=== PATIENT | male | born 1990 | race Caucasian/White ===

== ENCOUNTER → 2022-06-07 11:08 | Outpatient (CLI) | payer OTHER, SELFPAY ==
--- NOTE | ~2022-06-07 | XR_ITS ---
EXAMINATION: XR knee LT 3V DATE: 06/07/2022 11:23 INDICATION: Left knee pain TECHNIQUE: Three views of the left knee were obtained. COMPARISON: None. FINDINGS: Alignment is normal. No fracture or osteochondral lesion. There is mild tricompartmental os teoarthritis characterized by tiny marginal osteophytes. There is a moderate size knee joint effusion . Soft tissues are unremarkable. IMPRESSION: 1. Moderate size knee joint effusion with mild osteoarthritis. Reviewed, dictated and finalized at location A.
--- NOTE | ~2022-06-07 | XR_ITS ---
EXAMINATION: XR knee RT 3V DATE: 06/07/2022 11:23 INDICATION: Right knee pain TECHNIQUE: Two views of the right knee were obtained. COMPARISON: None. FINDINGS: Alignment is normal. No fracture or osteochondral lesion. There is mild tricompartmental os teoarthritis characterized by tiny marginal osteophytes. There is a large knee joint effusion. Soft t issues are unremarkable. IMPRESSION: 1. Large knee joint effusion. 2. Mild osteoarthritis. Reviewed, dictated and finalized at location A.
== END ==
PROVIDERS: PCP Physician Assistant; Visit Provider Physician Assistant
DX: M17.0 Bilateral primary osteoarthritis of knee (principal); M25.461 Effusion, right knee
CPT/HCPCS: 73562

== ENCOUNTER 2022-08-23 16:17 | Outpatient (NON) | payer OTHER, SELFPAY ==
[2022-08-23 17:50] LABS: Appearance Synovial Fluid Hazy (Clear); Color Synovial Fluid Yellow (Colorless); Nucleated Cell Synovial Fluid 7852 /uL (0-200); Source Synovial Fluid Synovial fluid
[2022-08-23 17:51] LABS: Lymphocytes Synovial Fluid 20 %; Macrophages Synovial Fluid 5 %; Monocytes Synovial Fluid 23 %; Neutrophils Synovial Fluid 52 % (0-25); RBC Synovial Fluid 1190 /uL (0-0)
[2022-08-23 20:22] LABS: Appearance Synovial Fluid Cloudy (Clear); Color Synovial Fluid Red (Colorless); Source Synovial Fluid Synovial fluid
[2022-08-23 20:23] LABS: Lymphocytes Synovial Fluid 22 %; Neutrophils Synovial Fluid 69 % (0-25)
[2022-08-23 20:24] LABS: Monocytes Synovial Fluid 9 %
[2022-08-23 20:27] LABS: Crystals Synovial Fluid None Seen (None Seen)
== END 2022-08-23 16:18 | disposition home or self-care (01) ==
LOC: ANHLAB 16:17
PROVIDERS: PCP Emergency Medicine; Visit Provider Physician Assistant Surgical
DX: M25.461 Effusion, right knee (principal); M25.462 Effusion, left knee
CPT/HCPCS: 87070; 87075; 87205; 89051; 89060

== ENCOUNTER 2023-05-23 11:42 | Emergency (ER) | payer OTHER, SELFPAY ==
[2023-05-23 11:48] VITALS: BP 115/58; PULSE 84; RESP 16; TEMP 36.6; O2SAT 100
--- NOTE | 2023-05-23 11:54 | ED.SKABFB ---
HPI - Skin/Abscess/Foreign Bdy General Chief complaint: Skin/Abscess/Foreign Body Stated complaint: Hives Time Seen by Provider: 05/23/23 11:54 Source: patient, RN notes reviewed and old records reviewed Mode of arrival: ambulatory Limitations: no limitations History of Present Illness HPI narrative: 32 year old male presents with increasing rash especially to his bilateral arms with itching. Patient reports that he saw his physician on Monday for rash to his scalp, groin and was placed on some shampoo, and some lotions for his rash but now has spread to his bilateral arms and some on his lower stomach. Rash is red irregular shaped with no vesicles or weeping, lower forearms are red from scratching.Patient states that rash is very itchy. Patient reports that he has taken some Benadryl but it wipes him out. MD complaint: rash Onset (ago): day(s) (5-6 days) Severity: moderate Treatments prior to arrival: OTC topical medication and other (ketoconazole shampoo) Related Data Home Medications Medication Instructions Recorded Confirmed sertraline 100 mg tablet 100 mg PO DAILY 06/07/22 05/19/23 Allergies Allergy/AdvReac Type Severity Reaction Status Date / Time No Known Allergies Allergy Verified 05/19/23 14:23 Review of Systems Review of Systems: CONSTITUTIONAL: Denies fever, chills, or sweats. CARDIOVASCULAR: Denies chest pain, palpitations, or edema. RESPIRATORY: Denies cough or dyspnea. SKIN: Reports rash to scalp, groin, bilateral arms, abdomen for 5-6 days with itching MUSCULOSKELETAL: Denies joint pain or myalgia. NEUROLOGIC: Denies headache, numbness, or weakness. All systems reviewed & are unremarkable except as noted in HPI and below PMFSH Past Medical History Medical History Anxiety Back problem Depression Diarrhea Family History Family History Father Diabetes mellitus Hypertension Grandparent Acute myocardial infarction, Onset Age: 50 Family history of malignant neoplasm Mother Patient's mother is in good health Social History Social History Smoking status: Never smoker Alcohol intake: current Lack of Transportation: No Lack of Food: Never True Current Housing: I Have Housing Concerned About Future Housing: No Difficulty Paying Gas/Electric Bills: No Difficulty Paying for Meds: No Currently Unemployed: No Education: Master's Degree or Higher Difficulty w/ Childcare or Family Care: No Comments At time of signature, agree with nursing past medical, surgical, social and family history. There is no relevant family history pertinent to the presenting complaint Exam Narrative: GENERAL: Well-appearing, well-nourished, and in no acute distress. HEAD: Normocephalic, atraumatic. EYES: PERRLA, conjunctivae clear, and EOMI. ENT: Mucous membranes moist. Oropharynx with edema, erythema no lesions. NECK: Supple. No lymphadenopathy CHEST: Clear to auscultation. No respiratory distress.SAO2 100% on room air HEART: Regular rate and rhythm. SKIN: Warm, dry.? Patches of erythema raised itchy lesions noted on scalp, arms groin and stomach with spread of rash NEURO:? Alert and oriented x3. PSYCH: Normal mood and affect Course Course Emergency Course: Patient is aware of diagnosis, understands and agrees to treatment plan.? Anticipatory guidance given.? Patient agrees to follow-up as directed and is aware of reasons to seek care at the emergency department. Portions of this record may have been created with voice recognition software Level of Care: Express Care Visit Vital Signs Vital signs: Vital Signs Temperature 36.6 C 05/23/23 11:48 Pulse Rate 84 05/23/23 11:48 Respiratory Rate 16 05/23/23 11:48 Blood Pressure 115/58 L 05/23/23 11:48 Pulse Oximetry 100 05/23/23 11
== END 2023-05-23 12:26 | disposition home or self-care (01) ==
PROVIDERS: Emergency Provider Registered Nurse; PCP Emergency Medicine
DX: L25.8 Unspecified contact dermatitis due to other agents (principal); F41.9 Anxiety disorder, unspecified; F32.A Depression, unspecified
CPT/HCPCS: 87081; 87880; 99213; G0463